=== PATIENT | male | born 1950 | race Caucasian/White ===

== ENCOUNTER → 2024-01-16 | Outpatient (CLI) | payer MEDICARE ==
[~2024-01-16] MED LIST: ASPI-1197 PO; ATOR20TA65 PO; BETA PROSTATE PO; COQ10 PO; DOXA8TAB81 PO; FINA5TAB41 PO; HYDR25TA PO; MELA3TAB41 PO; OMEG-112 PO; SAW PALMETTO C1 EACH PO; ZOLP10TA6 PO
== END | disposition home or self-care (01) ==
LOC: RAH 08:57
PROVIDERS: ATTEND Internal Medicine
DX: K76.89 Other specified diseases of liver (principal); N28.1 Cyst of kidney, acquired
CPT/HCPCS: 76700

== ENCOUNTER → 2024-06-26 | Outpatient (CLI) | payer MEDICARE | END | disposition home or self-care (01) | LOC: RAH 09:16 | PROVIDERS: ATTEND Internal Medicine | DX: R22.2 Localized swelling, mass and lump, trunk (principal) | CPT/HCPCS: 76604 ==

== ENCOUNTER → 2024-07-31 | Outpatient (CLI) | payer MEDICARE ==
[~2024-07-31] MED LIST changes: +IOHEXOL 350 MG/ML 100ML INFUS..BTL IV ONE
--- NOTE | 2024-07-31 14:36 | HMCIMG ---
CT UPPER EXT W/WO CONTRAST HISTORY: Pain COMPARISON: None TECHNIQUE: Multiple sequential axial images of the right shoulder were obtained including post processing sagittal and coronal reconstruction images. Patient was not given contrast through intravenous route. FINDINGS: There are degenerative changes are seen with joint space narrowing involving glenohumeral joint and acromioclavicular joint. Subchondral cyst formations are seen. Radiopaque density is seen at the inferior aspect of the bony glenoid consistent with postop changes. There is no acute displaced fracture or dislocation. There is calcification noted at the insertion site of the rotator cuff tendon suspicious for respiratory tendinosis. IMPRESSION: 1. No fracture is seen. DJD. CT was performed with one or more following dose reduction techniques: automated exposure control, adjustment of the mA and kv according to patient's size, or use of a iterative reconstruction technique.
== END | disposition home or self-care (01) ==
LOC: RAH 12:35
DX: M19.011 Primary osteoarthritis, right shoulder (principal); R22.2 Localized swelling, mass and lump, trunk
CPT/HCPCS: 73202; Q9967

== ENCOUNTER → 2025-05-04 | Outpatient (CLI) | payer MEDICARE ==
--- NOTE | 2025-05-12 08:48 | CARDIOLOGY ---
RAD REPORT: [facility] CT ANGIO RADIOLOGY REPORT: CORONARY CT ANGIOGRAPHY DATE: May 12, 2025 QUALITY: Excellent CLINICAL HISTORY AND INDICATION: [ chest pain ] TECHNIQUE: After obtaining a preliminary practice manager image, contrast imaging performed on an [employer] [id number] scanner. A dedicated, limited window, coronary imaging protocol was used, with single breath-hold, retrospective ECG gating, and automated arrhythmia rejection. 100 cc of low osmolar contrast agent: Omnipaque 350 was delivered via a 18-gauge IV catheter in the right antecubital fossa, using a power injector and followed by 60 cc of normal saline bolus as a chaser. Collimated images were reformatted at 0.5 mm intervals, and sent to an offline independent workstation for interpretation, using 3D anatomic reconstructions: Curved multiplanar reconstructions, maximum intensity projections, and multiplanar imaging. No metoprolol was administered prior to scanning due to low baseline heart rate. 0.8 mg SL nitroglycerin was given. CORONARY ARTERY DESCRIPTIONS: The coronary arteries arise in normal position. Left main coronary artery: Normal caliber vessel that bifurcates into the LAD and LCx. No stenosis. Left anterior descending coronary artery: Normal caliber vessel and gives rise to diagonal and septal branches. There is mixed calcified and noncalcified plaque in the proximal LAD with 50-60% stenosis. Left circumflex coronary artery: Normal caliber, nondominant and gives rise to a large OM branch. No stenosis. Right coronary artery: Large, dominant vessel giving rise to the PL and PDA branches. There is calcified plaque in the proximal RCA with 20-30% stenosis. However, due to calcification and associated blooming artifact lesion stenosis may be overestimated. CAD-RADs: 3, moderate stenosis. Recommend CT-FFR, pending analysis. Thoracic Aorta: Normal diameter. Tammie Spann MD Cardiovascular Disease [facility] TAMMIE SPANN MD May 12, 2025 08:48
== END | disposition home or self-care (01) ==
LOC: RAH 08:35
PROVIDERS: ATTEND Internal Medicine Cardiovascular Disease
DX: I25.10 Atherosclerotic heart disease of native coronary artery without angina pectoris (principal); I10 Essential (primary) hypertension; R07.9 Chest pain, unspecified
CPT/HCPCS: 75574; Q9967

== ENCOUNTER → 2025-05-12 | Outpatient (CLI) | payer MEDICARE ==
[~2025-05-12] MED LIST changes: -IOHEXOL 350 MG/ML 100ML INFUS..BTL IV ONE
--- NOTE | 2025-05-16 13:36 | CARDIOLOGY ---
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 A dedicated, limited window, coronary imaging protocol was used, with single breath-hold, retrospective ECG gating, and automated arrhythmia rejection. 100 cc of low osmolar contrast agent: Omnipaque 350 was delivered via a 18-gauge IV catheter in the right antecubital fossa, using a power injector and followed by 60 cc of normal saline bolus as a chaser. Collimated images were reformatted at 0.5 mm intervals, and sent to an offline independent workstation for interpretation, using 3D anatomic reconstructions: Curved multiplanar reconstructions, maximum intensity projections, and multiplanar imaging. No metoprolol was administered prior to scanning due to low baseline heart rate. 0.4 mg SL nitroglycerin was given. CORONARY ARTERY DESCRIPTIONS: The coronary arteries arise in normal position. Left main coronary artery: Normal caliber vessel that bifurcates into the LAD and LCx. No stenosis. Left anterior descending coronary artery: Normal caliber vessel and gives rise to diagonal and septal branches. There is mixed calcified and noncalcified plaque in the proximal LAD with 50-60% stenosis. Left circumflex coronary artery: Normal caliber, nondominant and gives rise to a large OM branch. No stenosis. Right coronary artery: Large, dominant vessel giving rise to the PL and PDA branches. There is calcified plaque in the proximal RCA with 20-30% stenosis. However, due to calcification and associated blooming artifact lesion stenosis may be overestimated. CAD-RADs: 3, moderate stenosis. FFR + in LAD, 0.75. Thoracic Aorta: Normal diameter. Tammie Spann MD Cardiovascular Disease [facility] TAMMIE SPANN MD May 16, 2025 13:36
== END | disposition home or self-care (01) ==
LOC: RAH 12:12
PROVIDERS: ATTEND Internal Medicine Cardiovascular Disease
DX: I25.10 Atherosclerotic heart disease of native coronary artery without angina pectoris (principal); I10 Essential (primary) hypertension; R07.9 Chest pain, unspecified
CPT/HCPCS: 75580